=== PATIENT | male | born 1975 | race Caucasian/White ===

== ENCOUNTER 2019-08-22 10:07 | Day surgery (SDC) | payer BC, OTHER ==
[2019-08-19 11:50] VITALS: BMI 47.7
[2019-08-22] MEDS ORDERED: ACETAMINOPHEN 325 MG TABLET (FP) PO PRN (10:42)
[2019-08-22] MEDS ORDERED: ONDANSETRON 4 MG/2 ML VIAL IVPUSH PRN (10:42)
[2019-08-22] MEDS ORDERED: oxyCODONE HCL 5 MG TABLET PO PRN (10:42)
[2019-08-22] MEDS ORDERED: BUPIVACAINE HCL/PF 0.5% (5 MG/ML) 30 ML VIAL IJ ONE ×3 (11:15→11:37)
[2019-08-22] MEDS ORDERED: LIDOCAINE HCL 1%, 10 MG/ML (20ML VIAL) ONE (11:15)
[2019-08-22] MEDS ORDERED: MIDAZOLAM HCL 2 MG/2 ML SINGLE DOSE VIAL ONE (11:23)
[2019-08-22] MEDS ORDERED: LIDOCAINE HCL 1%, 10 MG/ML (20ML VIAL) INF ONE ×2 (11:34)
[2019-08-22] MEDS ORDERED: IOHEXOL 180 MG/1 ML ML IJ ONE (11:36)
[2019-08-22 13:52] VITALS: BP 124/89; PULSE 88; TEMP 97.9
--- NOTE | 2019-08-31 21:59 | PROC ---
Procedure Note Procedure: Date of service: 08/22/2019 Preoperative Diagnosis: Low back pain and lumbar Facet Arthropathy on right / Left Postoperative Diagnosis: Same Procedure Performed: Lumbar Facet diagnostic blocks on Right / Left L3-4/ L4-5 / L5-S1 with dye under Fluoroscopy Anesthesia: Local / MAC Anesthesiologist: Procedure: I discussed with the patient in detail about the risks, benefits and alternatives to treatment not only limited to infection, headache, numbness, weakness and injury to nerves, spinal cord, blood vessels and muscles. The patient understood, agreed and signed the written consent. The patient was placed in the prone position with the head, abdomen and legs supported with the pillows. The patients lower back was prepped and draped in a sterile fashion. Under C-arm and Scottie dog view eye was identified the L2-3, L3-4 and L4-5 levels on Left side. At the level of L3-4 (L3), 2 ml of 1% Lidocaine was infiltrated into the skin and subcutaneous tissue. A 5 / 3.5 inch #23 guage spinal needle was used to approach the eye of the Scottie dog in the oblique view until the tip of the needle contacted the bone with the use of intermittent fluoroscopy. Needle placement was confirmed both in the AP and oblique view. Aspiration was done which was negative for blood. 0.20 ml of dye omnipaque was injected to see the spread of the dye. A solution of 0.5 ml of preservative free 0.5% Marcaine was injected at this level. While the needle was withdrawn 1 ml of 2% Lidocaine was infiltrated. Similarprocedure was repeated at left/ Right L4-5 (L4) and L5-S1 (L5) level and Rt L3-4 levels. The patient tolerated the procedure well. Bleeding was checked. There were no immediate complications. The patient was observed and asked about the pain level 2/10 while preop pain 10/10. The patient mentioned that there was improvement was more than 80%. The patient was told to apply ice at the injection sites. If there is any problem, call my office or report to the ER . The patient was discharged as per [facility]ally. ^ Sherman Webster M.D.
== END 2019-08-22 13:45 | disposition home or self-care (01) ==
LOC: JASU-SURG 10:07
PROVIDERS: ATTEND Physical Medicine & Rehabilitation
PROC: 3E0T33Z Introduction of Anti-inflammatory into Peripheral Nerves and Plexi, Percutaneous Approach (ICD-10-PCS; 2019-08-22)
PROC: 3E0T3BZ Introduction of Anesthetic Agent into Peripheral Nerves and Plexi, Percutaneous Approach (ICD-10-PCS; principal; 2019-08-22 11:30)
DX: M46.87 Other specified inflammatory spondylopathies, lumbosacral region (principal); M54.5 Low back pain
CPT/HCPCS: 76000-TC-FY

== ENCOUNTER 2020-07-09 12:58 | Emergency (ER) | payer BC, OTHER ==
--- NOTE | 2020-07-09 13:04 | PDOC ---
Rapid Medical Evaluation Chief Complaint: Revisit,Wound Recheck Time Seen by Provider: 07/09/20 13:03 Medical Evaluation: Allergies Allergy/AdvReac Type Severity Reaction Status Date / Time No Known Allergies Allergy Verified 08/19/19 11:41 07/09/20 13:04 I have performed a brief in-person evaluation of this patient. The patient presents with a chief complaint of:wound check of abscess to neck, on abx. No sig pain, f/c Pertinent physical exam findings:stable, well gene I have ordered the following:nothing The patient will proceed to the ED for further evaluation. Discharge Disposition - Diagnosis Wound check, abscess - Referrals - Patient Instructions - Post Discharge Activity
[2020-07-09 13:05] VITALS: BP 104/73; PULSE 105; BMI 44.9
--- NOTE | 2020-07-09 13:57 | PDOC ---
Suture Removal/Wound Check HPI - History of Present Illness Chief Complaint: Revisit,Wound Recheck Stated Complaint: FOLLOW UP Time Seen by Provider: 07/09/20 13:03 History Source: Yes: Patient Exam Limitations: Yes: No Limitations Treated at: [facility] Date of Last ED visit: 07/07/20 - Previous ED Treatment Type of procedure performed on last visit: Yes: I&D of Abscess Tetanus Immunization: Yes: Up to Date Antibiotics Prescribed: Yes Past History - Medical History Allergies/Adverse Reactions: Allergies Allergy/AdvReac Type Severity Reaction Status Date / Time No Known Allergies Allergy Verified 08/19/19 11:41 Home Medications: Ambulatory Orders Inositol 500 mg PO DAILY 08/11/16 Escitalopram Oxalate [Lexapro -] 40 mg PO DAILY 08/19/19 Ciprofloxacin [Cipro -] 500 mg PO Q12H 10 Days #20 tablet 07/07/20 Clindamycin [Cleocin -] 300 mg PO Q6HPO 10 Days #40 capsule 07/07/20 Anemia: No Asthma: No Cancer: No Cardiac Disorders: No CVA: No COPD: No CHF: No Dementia: No Diabetes: No GI Disorders: No Disorders: No HTN: No Hypercholesterolemia: No Liver Disease: No Psychiatric Problems: Yes (anxiety) Seizures: No Thyroid Disease: No - Surgical History Abdominal Surgery: No Appendectomy: No Cardiac Surgery: No Cholecystectomy: No Lung Surgery: No Neurologic Surgery: No Orthopedic Surgery: Yes (r hand 2009) - Immunization History Immunization Up to Date: Yes - Psycho-Social/Smoking History Smoking Status: Yes Smoking History: Never smoked Have you smoked in the past 12 months: Yes Number of Cigarettes Smoked Daily: 5 Information on smoking cessation initiated: No 'Breaking Loose' booklet given: 08/22/19 - Substance Abuse Hx (Audit-C & DAST Scrn) How often the patient has a drink containing alcohol: Never Score: In Men: 4 or > Positive; In Women: 3 or > Positive: 0 Screen Result (Pos requires Nsg. Audit-10AR): Negative In the last yr the pt used illegal drug/Rx for NonMed reason: No Score: Yes response is considered Positive: 0 Screen Result (Positive result requires Nsg. DAST-10): Negative Suture Removal/Wound Check PE - Physical Exam Laceration/Wound Check Symptoms: reports: None, Improved. denies: Pain, Fever, Chills, Redness, Discharge Current Severity Level: None Location of Laceration/Wound: bilateral: Neck (lower neck on back) *Review of Systems - Review of Systems Able to Perform ROS?: Yes Constitutional: Yes: Symptoms Reported. No: Chills, Fever HEENTM: No: Symptoms Reported, See HPI, Eye Pain, Blurred Vision, Tearing, Recent change in vision, Double Vision, Cataracts, Ear Pain, Ocular Prothesis, E ar Discharge, Nose Pain, Nose Congestion, Tinnitus, Nose Bleeding, Hearing Loss, Throat Pain, Throat Swelling, Mouth Pain, Dental Problems, Difficulty Swallowing, Mouth Swelling, Other Respiratory: No: Symptoms reported, See HPI, Cough, Orthopnea, Shortness of Breath, SOB with Exertion, SOB at Rest, Stridor, Wheezing, Productive cough, Hemoptysis, Other Cardiac (ROS): No: Symptoms Reported ABD/GI: No: Symptoms Reported, Nausea, Vomiting Musculoskeletal: Yes: See HPI. No: Symptoms Reported, Neck Pain (no neck pain) Integumentary: Yes: Symptoms Reported, See HPI, Other (abscess to back of neck) Neurological: No: Headache, Dizziness All Other Systems: Reviewed and Negative *Physical Exam - Vital Signs Last Vital Signs Temp Pulse Resp BP Pulse Ox 105 H 18 104/73 98 07/09/20 13:03 07/09/20 13:03 07/09/20 13:03 07/09/20 13:03 - Physical Exam 07/09/20 14:01 GENERAL: Well developed, well nourished. Awake and alert. No acute distress. HEENT: 2 cm horizontal laceration to lower back of neck from abscess drainage with wound packing in place. No skin erythema. No drainage from abscess. Normocephalic, atraumatic. PERRLA, EOMI. No conjunctival pallor. Sclera are non- icteric. Moist mucous membranes. Oropharynx is clear. NECK: Supple. Full ROM. PULMONARY: No evidence of respiratory distress. MUSCULOSKELETAL Normal range of motion at all joints. SKIN: Warm and dry. Normal capillary refill. 2 cm horizontal laceration to lower back of neck from abscess drainage with wound packing in place. No skin erythema. No drainage from abscess. No evidence of wound infection NEUROLOGICAL: Alert, awake, appropriate. Gait is normal without ataxia. PSYCHIATRIC: Cooperative. Good eye contact. Appropriate mood General Appearance: Yes: Nourished, Appropriately Dressed. No: Apparent Distress Medical Decision Making - Medical Decision Making 07/09/20 14:02 Patient with past medical history of diabetes presenting for wound check status post presenting 2 days ago with abscess to lower back of neck requiring I&D. Patient was to be admitted by patient refused admission 2 days ago and signed out AMA after I&D. Patient given Vanco in ED 2 days ago and discharged on clindamycin. Denies fever, chills, headache, neck pain, neck stiffness, nausea, vomiting. Patient report has been doing wound care and changing gauze daily. Denies any other symptoms Exam significant for 2 cm horizontal wound to back of lower neck over C7 with wound packing in place. No skin erythema or evidence of infection. Full range of motion of cervical spine. Patient in no acute distress. Wound area nontender. Wound packing removed. No drainage from wound site. Bacitracin applied to wound and wound covered adhesive bandage. Patient educated on continues home wound care. Patient has appointment with general surgeon in 3 days. Patient stable for discharge to continue clindamycin antibiotics with strict follow-up instructions Discharge - Discharge Information Problems reviewed: Yes Clinical Impression/Diagnosis: Wound check, abscess, Abscess Condition: Improved Disposition: HOME - Admission No - Follow up/Referral Referrals: Precious Webster MD [Primary Care Provider] - - Patient Discharge Instructions Patient Printed Discharge Instructions: How to Care for a Surgical Wound Additional Instructions: Continue taking prescribed antibiotics and finish it. Apply bacitracin or Neosporin to wound twice a day until healed. Follow-up with your surgeon on as scheduled and have him evaluate the wound. Also follow-up with your primary care. Come back to the emergency room if severe headache, dizziness, fever with nausea and vomiting. - Post Discharge Activity
== END 2020-07-09 14:00 | disposition home or self-care (01) ==
LOC: JERFT 12:58
DX: Z48.01 Encounter for change or removal of surgical wound dressing (principal)
CPT/HCPCS: 99282-25

== ENCOUNTER 2023-03-09 07:11 | Emergency (ER) | payer BC, OTHER ==
[2023-03-09 07:43] VITALS: TEMP 98; BMI 29.7
[2023-03-09] MEDS ORDERED: morphine CARPU-JECT 4 MG/1 ML DISP.SYRIN IVPUSH ONE (07:55)
[2023-03-09] MEDS ORDERED: morphine SULFATE 4 MG/ML VIAL ONE (08:19)
[2023-03-09] MEDS ORDERED: ONDANSETRON 4 MG/2 ML VIAL IVPUSH ONE (09:05)
[2023-03-09] MEDS ORDERED: ONDANSETRON 4 MG/2 ML VIAL ONE (09:17)
[2023-03-09 09:41] LABS: ACTIVATED PTT 26.8 SECONDS (25.2-36.5); INR 1.03 (0.83-1.09); PROTHROMBIN TIME (PATIENT) 11.9 SEC (9.7-13.0)
[2023-03-09 09:42] LABS: BASO % 0.8 % (0-2.0); EOS % 0.3 % (0-4.5); HEMATOCRIT 34.1 % (35.4-49); LYMPH % 11.2 % (8-40); MCH 35.3 pg (25.7-33.7); MCHC 35.2 g/dl (32.0-35.9); MEAN CELL VOLUME 100.3 fl (80-96); MONO % 7.5 % (3.8-10.2); NEUT % 80.2 % (42.8-82.8); PLATELET COUNT 136 10^3/uL (134-434); RDW 13.8 % (11.9-15.9); WHITE BLOOD COUNT 7.2 K/mm3 (4.0-10.0)
[2023-03-09] MEDS ORDERED: busPIRone HCL 5 MG TABLET PO ONE (09:58)
[2023-03-09] MEDS ORDERED: PARoxetine HCL 10 MG TABLET PO ONE (09:58)
[2023-03-09 09:59] VITALS: PULSE 66
[2023-03-09 09:59] LABS: ALBUMIN 4.2 g/dl (3.4-5.0); CALCIUM 9.9 mg/dL (8.5-10.1)
[2023-03-09 10:00] LABS: BLOOD UREA NITROGEN 12.2 mg/dL (7-18)
[2023-03-09 10:03] LABS: CREATININE 0.8 mg/dL (0.55-1.3)
[2023-03-09 10:04] LABS: BILIRUBIN,TOTAL 0.9 mg/dL (0.2-1); TOT PROT 7.8 g/dl (6.4-8.2)
[2023-03-09] MEDS ORDERED: busPIRone HCL 5 MG TABLET ONE (10:08)
[2023-03-09] MEDS ORDERED: PARoxetine HCL 10 MG TABLET ONE (10:09)
[2023-03-09] MEDS ORDERED: KETOROLAC TROMETHAMINE 15 MG/ML VIAL IVPUSH ONE (10:38)
[2023-03-09] MEDS ORDERED: KETOROLAC TROMETHAMINE 15 MG/ML VIAL ONE (10:48)
[2023-03-09 14:22] VITALS: BP 134/82; RESP 18
== END 2023-03-09 14:37 | disposition home or self-care (01) ==
LOC: JER 07:11
PROC: 3E0333Z Introduction of Anti-inflammatory into Peripheral Vein, Percutaneous Approach (ICD-10-PCS; principal; 2023-03-09)
PROC: 3E033GC Introduction of Other Therapeutic Substance into Peripheral Vein, Percutaneous Approach (ICD-10-PCS; 2023-03-09)
PROC: 3E033GC Introduction of Other Therapeutic Substance into Peripheral Vein, Percutaneous Approach (ICD-10-PCS; 2023-03-09)
DX: S42.291A Other displaced fracture of upper end of right humerus, initial encounter for closed fracture (principal); W18.30XA Fall on same level, unspecified, initial encounter; Z20.822 Contact with and (suspected) exposure to COVID-19
CPT/HCPCS: 36415; 70450-TC; 73030-TC-RT-FY; 80053; 85025; 85610; 85730; 86850; 86900; 86901; 93005; 93010; 99285-25; C9803-CS; U0003; U0005